=== PATIENT | female | born 1950 | race Caucasian/White ===

== ENCOUNTER 2020-07-17 12:02 | Observation (INO) | payer OTHER ==
[2020-07-14 14:36] LABS: BASOPHILS # (AUTO) 0.04 x10^3/uL (0-0.1); BASOPHILS % (AUTO) 1 % (0-1); EOSINOPHILS # (AUTO) 0.11 x10^3/uL (0-0.4); EOSINOPHILS % (AUTO) 2 % (1-7); LYMPHOCYTES # (AUTO) 2.13 x10^3/uL (1-3.4); LYMPHOCYTES % (AUTO) 29 % (22-44); MD NO; MEAN CORPUSCULAR HEMOGLOBIN 31.2 pg (27.0-34.8); MEAN CORPUSCULAR HGB CONC 33.1 g/dL (32.4-35.8); MEAN PLATELET VOLUME 9.5 fL (7.4-10.4); MONOCYTES # (AUTO) 0.39 x10^3/uL (0.2-0.8); MONOCYTES % (AUTO) 5 % (2-9); NEUTROPHILS # (AUTO) 4.68 x10^3/uL (1.8-6.8); NEUTROPHILS % (AUTO) 64 % (42-75); PLATELET COUNT 275 x10^3/uL (130-400); RED BLOOD COUNT 5.53 x10^6/uL (3.82-5.3); RED CELL DISTRIBUTION WIDTH 14.7 % (9.6-15.2)
[2020-07-14 14:45] LABS: INTERNATIONAL NORMALIZED RATIO 1.01 (0.93-1.1); PROTHROMBIN TIME 10.4 Seconds (9.6-11.5)
[2020-07-14 14:48] LABS: ALBUMIN 3.7 g/dL (3.4-5.0); ANION GAP 5 mmol/L (5-15); CALCIUM 9.2 mg/dL (8.5-10.1); CHLORIDE 106 mmol/L (98-107)
[2020-07-14 14:51] LABS: ALANINE AMINOTRANSFERASE 15 U/L (12-78); ALKALINE PHOSPHATASE 102 U/L (45-117); BILIRUBIN,TOTAL 0.5 mg/dL (0.2-1.0); CREATININE 0.89 mg/dL (0.55-1.02); TOTAL PROTEIN 7.8 g/dL (6.4-8.2)
[~2020-07-17] VITALS: Ht 162.6 cm; Wt 70.7 kg
[~2020-07-17 12:02] MED LIST: EPINEPHRINE 1 MG/ML, 1ML ONE; KETOROLAC 60 MG/2 ML ONE; ROCURONIUM 10MG/ML,5ML ONE; ROPIvacaine/PF 0.2%, 20 ML ONE; SODIUM CHLORIDE 0.9% 50 ML ONE; TRANEXAMIC ACID 100 MG/ML, 10ML ONE; VANCOMYCIN 1,000 MG ONE
[2020-07-17] MEDS ORDERED: LACTATED RINGERS 1,000 ML IV SCH (12:41)
[2020-07-17] MEDS ORDERED: PROPOFOL 10 MG/ML, 20ML ONE (12:50)
[2020-07-17] MEDS ORDERED: ONDANSETRON 2MG/ML, 2ML ONE (12:50)
[2020-07-17] MEDS ORDERED: GLYCOPYRROLATE 0.2MG/1ML, 5ML ONE (12:50)
[2020-07-17] MEDS ORDERED: CEFAZOLIN 1,000 MG ONE (12:50)
[2020-07-17] MEDS ORDERED: FENTANYL PF 250 MCG/5ML ONE (12:50)
[2020-07-17] MEDS ORDERED: DEXAMETHASONE 4 MG/ML, 1ML ONE (12:50)
[2020-07-17] MEDS ORDERED: SUCCINYLCHOLINE 20 MG/ML, 10ML ONE (12:50)
[2020-07-17] MEDS ORDERED: NEOSTIGMINE 1 MG/ML, 10ML ONE (12:50)
[2020-07-17 12:55] VITALS: BP 127/78
[2020-07-17] MEDS ORDERED: GABAPENTIN 300 MG CAPSULE PO ONE (13:00)
[2020-07-17] MEDS ORDERED: ACETAMINOPHEN 500 MG TABLET PO ONE (13:00)
[2020-07-17] MEDS ORDERED: CHLORHEXIDINE 15 ML UDC MM ONE (13:00)
[2020-07-17] MEDS ORDERED: NO MEDS PER PT (13:10)
[2020-07-17] MEDS ORDERED: DIPHENHYDRAMINE 50 MG/ML, 1ML IVPush PRN (13:30)
[2020-07-17] MEDS ORDERED: ALUMINUM/MAG/SIMETHICONE 30 ML UDC PO PRN (13:30)
[2020-07-17] MEDS ORDERED: METOCLOPRAMIDE 5 MG/ML, 2ML IVPush PRN (13:30)
[2020-07-17] MEDS ORDERED: ONDANSETRON 2MG/ML, 2ML IVPush PRN (13:30)
[2020-07-17] MEDS ORDERED: TRANEXAMIC ACID 1,000 MG in SODIUM CHLORIDE 0.9% 100 ML IVPB ONE (13:30)
[2020-07-17] MEDS ORDERED: ONDANSETRON 4 MG TABLET PO PRN (13:30)
[2020-07-17] MEDS ORDERED: OXYcodone IR 5MG TABLET PO PRN (13:30)
[2020-07-17] MEDS ORDERED: POLYETHYLENE GLYCOL 17 GM PACKET PO PRN (13:30)
[2020-07-17] MEDS ORDERED: ACETAMINOPHEN 325 MG TABLET PO PRN ×2 (13:30→15:00)
[2020-07-17] MEDS ORDERED: ACETAMINOPHEN 650 MG/20.3 ML UDC PO PRN (13:30)
[2020-07-17] MEDS ORDERED: PROMETHAZINE 25 MG/ML, 1ML IM PRN (13:30)
[2020-07-17] MEDS ORDERED: PSYLLIUM PACKET PO PRN (13:30)
[2020-07-17] MEDS ORDERED: HYDROmorphone 1 MG/ML, 1ML INJ IVPush PRN ×2 (13:30→15:00)
[2020-07-17] MEDS ORDERED: MAGNESIUM HYDROXIDE 8%, 30ML UDC PO PRN (13:30)
[2020-07-17] MEDS ORDERED: PROMETHAZINE 12.5 MG SUPP PR PRN (15:00)
[2020-07-17] MEDS ORDERED: EPHEDRINE 50 MG/ML, 1ML IVPush PRN (15:00)
[2020-07-17] MEDS ORDERED: OXYcodone 5 MG/5 ML ORAL.SOL UDC PO PRN (15:00)
[2020-07-17] MEDS ORDERED: LABETALOL 5MG/ML, 20ML IV PRN (15:00)
[2020-07-17] MEDS ORDERED: hydrALAzine 20 MG/ML, 1ML IV PRN (15:00)
[2020-07-17] MEDS ORDERED: FENTANYL PF 100 MCG/2ML ONE (15:34)
[2020-07-17] MEDS: FENTANYL PF 100 MCG/2ML IV PRN ×3 (15:35→15:52)
[2020-07-17] MEDS ORDERED: OXYcodone 5 MG/5 ML ORAL.SOL UDC ONE (15:43)
[2020-07-17] MEDS ORDERED: DIPHENHYDRAMINE 25 MG CAPSULE PO PRN (16:31)
[2020-07-17] MEDS: KETOROLAC 30 MG/1 ML IV SCH (17:39)
[2020-07-17] MEDS: POTASSIUM CHLORIDE 20 MEQ in D5%-0.45% NACL 1,000 ML IV SCH (17:39)
[2020-07-17] MEDS: ASPIRIN 81 MG TABLET EC PO SCH (17:39)
[2020-07-17 19:34] VITALS: BP 143/94
[2020-07-17] MEDS: DOCUSATE 100 MG CAPSULE PO SCH (19:57)
[2020-07-17] MEDS: CEFAZOLIN PMX 1GM/50ML 50 ML IVPB SCH (19:57)
[2020-07-17 23:54] VITALS: BP 114/63
[2020-07-18] MEDS: POTASSIUM CHLORIDE 20 MEQ in D5%-0.45% NACL 1,000 ML IV SCH (02:28)
[2020-07-18 03:30] VITALS: BP 147/67
[2020-07-18] MEDS: KETOROLAC 30 MG/1 ML IV SCH ×2 (03:45→09:08)
[2020-07-18] MEDS: CEFAZOLIN PMX 1GM/50ML 50 ML IVPB SCH (03:45)
[2020-07-18] MEDS ORDERED: DEXAMETHASONE 4 MG/ML, 1ML IVPush ONE (06:00)
[2020-07-18] MEDS: ASPIRIN 81 MG TABLET EC PO SCH (06:21)
[2020-07-18 07:55] VITALS: BP 126/60
[2020-07-18] MEDS ORDERED: ASPI81TA45 PO (08:51)
[2020-07-18] MEDS ORDERED: TAMSULOSIN 0.4 MG CAP.ER.24H PO SCH (09:00)
[2020-07-18] MEDS: DOCUSATE 100 MG CAPSULE PO SCH (09:08)
== END 2020-07-18 12:02 | disposition home or self-care (01) ==
LOC: OUT 12:02 → ORIP 13:16 → 4NE 16:15 → DCLOUNGE 07-18 11:49
PROVIDERS: ADMIT Orthopaedic Surgery; ATTEND Orthopaedic Surgery
DX: M16.12 Unilateral primary osteoarthritis, left hip (principal); Z20.828 Contact with and (suspected) exposure to other viral communicable diseases; Z79.899 Other long term (current) drug therapy; Z87.891 Personal history of nicotine dependence
CPT/HCPCS: 27130; 36415; 72170; 80053; 83036; 85014; 85018; 85025; 85610; 85730; 86850; 86900; 87081; 87147; 87635; 87806; 93005; 96361; 96365; 96366; 96375; 96376; 97161; 97165; C1713; C1776; G0378; J0171; J0330; J0690; J1100; J1885; J2405; J2704; J2710; J2795; J3010; J3480; J7120; J3370; G0475